=== PATIENT | female | born 1995 | race Caucasian/White ===

== ENCOUNTER 2019-10-18 02:20 | Emergency (ER) | payer OTHER ==
[2019-10-18 03:15] LABS: BLOOD UREA NITROGEN,BUN 8 mg/dL (7.0-18.0); CARBON DIOXIDE,CO2 22.2 mmol/L (21.0-32.0); CHLORIDE,CL 104 mmol/L (98-107); GLUCOSE RANDOM 145 mg/dL (74-106); SODIUM,NA 138 mmol/L (136-145)
--- NOTE | 2019-10-18 04:27 | EDM.PDOC ---
ED HPI GENERAL MEDICAL PROBLEM - General Chief Complaint: Cardiovascular Problem Stated Complaint: HEART PALPITATION Time Seen by Provider: 10/18/19 02:32 - History of Present Illness INITIAL COMMENTS - FREE TEXT/NARRATIVE: HPI 24-year-old female at ~25 weeks gestation presents for evaluation of recurrent palpitations that she noticed at 1 AM when she woke from her sleep, patient wants to just make sure that I am okay and my baby is okay. Patient notes a history of recurrent episodes of palpitations similar to todays event for which she is not sought care. These have generally been responsive to Ativan (which the patient took tonight as well). Notes a history of PSVT as well. No fevers, chills, chest pain, shortness breath, no history of DVT or PE. No calf tenderness, swelling, hemoptysis. M/S/F/SocHx notable for: please see HPI; remainder reviewed with patient and in chart. ROS: Negative constitutional, eye, cardiovascular, pulmonary, GI, , MSK, skin , neurologic, psychiatric, endocrine unless noted in the HPI. Exam HR 114, RR 18, BP one 4488, T 35.8C, SaO2 100% on room air. Gen: Pleasant, non-toxic appearing, resting comfortably. HEENT: NC, AT, PEERL, EOMI. Resp: Clear to auscultation bilaterally, normal work of breathing, no accessory muscle usage. Card: Regular rate and rhythm with no murmurs, rubs, or gallops, extremities warm and well perfused. GI: Non-tender to palpation throughout all quadrants, no focal tenderness at McBurney's point, negative Vital's sign, non-distended, no rebound or guarding. : No suprapubic tenderness to palpation. MSK: No visible deformities, strength and tone without visually appreciable deficit. Skin: Normal color with no visible lesions. Neuro: alert and oriented 3, no facial asymmetry, vision and hearing WNL. Psych: Mood and affect appropriate. Focused Ultrasound Indication: evaluation . Exam type (limited): Transabdominal, initial Views obtained: Transabdominal sagittal and transabdominal transverse. Findings: intrauterine with FHR of ~140. Labs / Imaging: EKG: SR 107 bpm, no IA segment depressions, IA interval hundred 40 ms, QRS 86 ms , no ST segment elevations or depressions, QTc 434 ms, no discordant T wave inversions. WBC 13.7, HB 11.4, d-dimer 0.48, sodium 138, potassium 4.0, troponin 0.55 MDM Previous chart, nursing note, labs, imaging, and vitals reviewed. A: 24-year-old female at ~25 weeks gestation presents for evaluation of recurrent palpitations that she noticed at 1 AM when she woke from her sleep , patient wants to just make sure that I am okay and my baby is okay. DDx: gastritis, GERD, pericarditis, myocarditis, PE, ACS, anxiety, arrhythmia. Evaluation: patient asymptomatic, ECG without evidence of conduction abnormalities or ischemia, however there is mild leukocytosis (unclear if 2/2 or secondary to infectious/inflammatory process), troponin is elevated in the patients d-dimer is negative. PE is felt to be low probability based upon clinical Gestalt and the negative d-dimer. Troponin elevation is of unclear etiology, this may be secondary to a pericarditis, myocarditis, right heart strain (e.g. PE), or conceivably demand mediated due to a spontaneously resolved paroxysmal arrhythmia that could have conceivably woken the patient from her sleep. As the patient is asymptomatic and hemodynamically stable throughout her ED course in [place] further evaluation and interventions deferred to the accepting physician, Dr. Liao in [place]. Patient transferred by ALS. Impression: palpitations, elevated troponin. (please reference below for remainder of encounter information) Critical Care Time Organ system(s): Cardiovascular Intervention: Assessment of the patient, interpretation of studies, communication related to patient care. Time: 30 minutes were spent directly related to patient care exclusive of separately billed procedures. chest Pain Score (Numeric/FACES): 5 - Related Data Allergies Allergy/AdvReac Type Severity Reaction Status Date / Time No Known Allergies Allergy Verified 10/18/19 02:31 Home Meds: Home Meds LORazepam 0.5 mg PO Q4H PRN 07/15/18 [History] Pnv No.95/Ferrous Fum/Folic AC [ Tablet] 1 tab PO DAILY 07/15/18 [ History] Iron 1 tab PO DAILY 07/31/18 [History] metFORMIN [Glucophage XR] 500 mg PO BID 10/18/19 [History] Past Medical History - Past Health History Medical/Surgical History: Denies Medical/Surgical History HEENT History: Reports: None Cardiovascular History: Reports: Arrhythmia, Other (See Below) Other Cardiovascular History: PSVT 2015 [employer] History: Reports: Psychiatric History: Reports: Anxiety, Depression Endocrine/Metabolic History: Reports: Diabetes, Gestational - Past Surgical History HEENT Surgical History: Reports: Oral Surgery, Tonsillectomy Cardiovascular Surgical History: Reports: None Endocrine Surgical History: Reports: None Social & Family History - Family History Family Medical History: Noncontributory - Tobacco Use Smoking Status *Q: Never Smoker - Recreational Drug Use Recreational Drug Use: No - Living Situation & Occupation Living situation: Reports: with Significant Other Occupation: Employed ED ROS GENERAL - Review of Systems Review Of Systems: See Below ED EXAM, GENERAL - Physical Exam Exam: See Below Course - Vital Signs Last Recorded V/S: Last Vital Signs Temp 36.2 C 10/18/19 04:11 Pulse 106 H 10/18/19 04:11 Resp 16 10/18/19 04:11 BP 142/95 H 10/18/19 04:11 Pulse Ox 98 10/18/19 04:11 - Orders/Labs/Meds Orders: Active Orders 24 hr Category Date Time Status EKG Documentation Completion [RC] STAT Care 10/18/19 02:45 Active Labs: Laboratory Tests 10/18/19 10/18/19 10/18/19 Range/Units 02:50 02:50 02:50 WBC 13.69 H (4.0-11.0) K/uL RBC 3.75 L (4.30-5.90) M/uL Hgb 11.4 L (12.0-16.0) g/dL Hct 34.4 L (36.0-46.0) % MCV 91.7 (80.0-98.0) fL MCH 30.4 (27.0-32.0) pg MCHC 33.1 (31.0-37.0) g/dL RDW Std Deviation 46.0 (28.0-62.0) fl RDW Coeff of Charley 14 (11.0-15.0) % Plt Count 193 (150-400) K/uL MPV 9.40 (7.40-12.00) fL Neut % (Auto) 84.7 H (48.0-80.0) % Lymph % (Auto) 10.7 L (16.0-40.0) % Ector % (Auto) 4.2 (0.0-15.0) % Eos % (Auto) 0.3 (0.0-7.0) % Baso % (Auto) 0.1 (0.0-1.5) % Neut # (Auto) 11.6 H (1.4-5.7) K/uL Lymph # (Auto) 1.5 (0.6-2.4) K/uL Ector # (Auto) 0.6 (0.0-0.8) K/uL Eos # (Auto) 0.0 (0.0-0.7) K/uL Baso # (Auto) 0.0 (0.0-0.1) K/uL Nucleated RBC % 0.0 /100WBC Nucleated RBCs # 0 K/uL D-Dimer, Quantitative 0.48 (0.0-0.50) mg/L FEU Sodium 138 (136-145) mmol/L Potassium 4.0 (3.5-5.1) mmol/L Chloride 104 (98-107) mmol/L Carbon Dioxide 22.2 (21.0-32.0) mmol/L BUN 8 (7.0-18.0) mg/dL Creatinine 0.7 (0.6-1.0) mg/dL Est Cr Clr Drug Dosing 115.01 mL/min Estimated GFR (MDRD) > 60.0 ml/min Glucose 145 H (74-106) mg/dL Calcium 8.6 (8.5-10.1) mg/dL Troponin I 0.548 H* (0.000-0.056) ng/mL Departure - Departure Time of Disposition: 04:27 Disposition: DC/Tfer to Other 70 Reason for Transfer *Q: Other (see note) Clinical Impression: Palpitations Referrals: PCP,None [Primary Care Provider] - Sepsis Event Note - Evaluation Sepsis Screening Result: No Definite Risk - Focused Exam Vital Signs: Vital Signs Temp Pulse Resp BP Pulse Ox 10/18/19 04:11 36.2 C 106 H 16 142/95 H 98 10/18/19 03:50 107 H 16 121/87 98 10/18/19 02:20 35.8 C 114 H 18 144/88 H 100 Date Exam was Performed: 10/18/19 Time Exam was Performed: 04:26 - My Orders Last 24 Hours: My Active Orders 10/18/19 02:45 EKG Documentation Completion [RC] STAT - Assessment/Plan Last 24 Hours: My Active Orders 10/18/19 02:45 EKG Documentation Completion [RC] STAT
== END 2019-10-18 04:47 | disposition other institution (70) ==
LOC: MW.ED 02:20
DX: O99.89 Other specified diseases and conditions complicating pregnancy, childbirth and the puerperium (principal); R00.2 Palpitations; R79.89 Other specified abnormal findings of blood chemistry; O99.342 Other mental disorders complicating pregnancy, second trimester; F41.9 Anxiety disorder, unspecified; Z79.899 Other long term (current) drug therapy; Z3A.25 25 weeks gestation of pregnancy
CPT/HCPCS: 36415; 80048; 84484; 85025; 85379; 93005; 99285-25; 99291

== ENCOUNTER 2020-01-16 00:13 | Inpatient (IN) | payer OTHER ==
[2020-01-16] MEDS ORDERED: Misoprostol 25 MCG (1/4 of 100 MCG) Tab VAG PRN ×2 (00:49)
[2020-01-16] MEDS ORDERED: Sodium Chloride 0.9% 10 ML SDV IV PRN (00:49)
[2020-01-16] MEDS ORDERED: Nalbuphine 10 MG/1 ML Vial IVPUSH PRN (00:49)
[2020-01-16] MEDS ORDERED: Methylergonovine 0.2 MG/1 ML Amp IM PRN (00:49)
[2020-01-16] MEDS ORDERED: Tranexamic Acid 1,000 MG in Sodium Chloride 0.9% 100 ML IV PRN (00:49)
[2020-01-16] MEDS ORDERED: Misoprostol 200 MCG Tab PO PRN (00:49)
[2020-01-16] MEDS ORDERED: Carboprost Tromethamine 250 MCG/1 ML Amp IM PRN (00:49)
[2020-01-16] MEDS ORDERED: Sodium Chloride 0.9% 10 ML Syringe FLUSH PRN (00:49)
[2020-01-16] MEDS ORDERED: Ondansetron 4 MG/2 ML SDV IVPUSH PRN (00:49)
[2020-01-16] MEDS ORDERED: Sodium Chloride 0.9% 2.5 ML Syringe FLUSH PRN (00:49)
[2020-01-16] MEDS ORDERED: Lidocaine 1% 50 ML MDV INJECT PRN (00:49)
[2020-01-16] MEDS ORDERED: Terbutaline 1 MG/ML SDV SUBCUT PRN (00:49)
[2020-01-16] MEDS ORDERED: Misoprostol 25 MCG (1/4 of 100 MCG) Tab PO PRN ×2 (00:49)
[2020-01-16] MEDS ORDERED: Water For Irrigation,Sterile 1,000 ML Container IRR PRN (00:49)
[2020-01-16] MEDS ORDERED: Oxytocin/0.9 % Sodium Chloride 30 UNIT/500 ML BAG IV SCH ×2 (01:00)
--- NOTE | 2020-01-16 09:15 | PCM.LDHP ---
L&D History of Present Illness - General Date of Service: 01/16/20 Admit Problem/Dx: Patient Status Order with Admit Dx/Problem 01/16/20 00:49 Patient Status [ADT] Routine Admission Diagnosis/Problem Admission Diagnosis/Problem Source of Information: Patient History Limitations: Reports: No Limitations - History of Present Illness Improves with: Reports: None Worsens with: Reports: None Associated Symptoms: Reports: N - Related Data Allergies/Adverse Reactions: Allergies Allergy/AdvReac Type Severity Reaction Status Date / Time No Known Allergies Allergy Verified 01/16/20 00:48 Home Medications: Home Meds LORazepam 0.5 mg PO Q4H PRN 07/15/18 [History] Pnv No.95/Ferrous Fum/Folic AC [ Tablet] 1 tab PO DAILY 07/15/18 [ History] Iron 1 tab PO DAILY 07/31/18 [History] metFORMIN [Glucophage XR] 500 mg PO BID 10/18/19 [History] Past Medical History - Past Health History Medical/Surgical History: Denies Medical/Surgical History HEENT History: Reports: None Cardiovascular History: Reports: Arrhythmia, Other (See Below) Other Cardiovascular History: PSVT [address] [employer] History: Reports: Psychiatric History: Reports: Anxiety, Depression Endocrine/Metabolic History: Reports: Diabetes, Gestational - Past Surgical History HEENT Surgical History: Reports: Oral Surgery, Tonsillectomy Cardiovascular Surgical History: Reports: None Endocrine Surgical History: Reports: None Social & Family History - Family History Family Medical History: Noncontributory - Tobacco Use Smoking Status *Q: Never Smoker Second Hand Smoke Exposure: No - Caffeine Use Caffeine Use: Reports: None - Recreational Drug Use Recreational Drug Use: No - Living Situation & Occupation Living situation: Reports: with Significant Other Occupation: Employed H&P Review of Systems - Review of Systems: Review Of Systems: See Below General: Reports: No Symptoms HEENT: Reports: No Symptoms Pulmonary: Reports: No Symptoms Cardiovascular: Reports: No Symptoms Gastrointestinal: Reports: No Symptoms Genitourinary: Reports: No Symptoms Musculoskeletal: Reports: No Symptoms Skin: Reports: No Symptoms Psychiatric: Reports: No Symptoms Neurological: Reports: No Symptoms Hematologic/Lymphatic: Reports: No Symptoms Immunologic: Reports: No Symptoms L&D Exam - Exam Exam: See Below - Vital Signs Weight: 125.191 kg - OB Specific Fundal Height In cm: 40 Contraction Intensity: Mild to Moderate Movement: Active Heart Tones: Present Presentation: Vertex - Patterson Score Patterson Score Cervix Position: Midposition Patterson Score Consistency: Soft Patterson Score Effacement: 51-70% Patterson Score Dilation: 1-2 cm Patterson Score Infant's Station: -2 Patterson Score Total: 7 - Exam General: Alert, Oriented HEENT: PERRLA, Conjunctiva Clear, EACs Clear, EOMI, Hearing Intact, Mucosa Moist & [place], Nares Patent, Normal Nasal Septum, Posterior Pharynx Clear, TMs Clear Neck: Supple, Trachea Midline Lungs: Clear to Auscultation, Normal Respiratory Effort Cardiovascular: Regular Rate, Regular Rhythm GI/Abdominal Exam: Normal Bowel Sounds, Soft, Non-Tender, No Organomegaly, No Distention, No Abnormal Bruit, No Mass, Pelvis Stable Rectal Exam: Normal Exam, Normal Rectal Tone Genitourinary: Normal external exam, Normal bimanual exam, Normal speculum exam Back Exam: Normal Inspection, Full Range of Motion Extremities: Normal Inspection, Normal Range of Motion, Non-Tender, No Pedal Edema, Normal Capillary Refill Skin: Warm, Dry, Intact Neurological: Cranial Nerves Intact, Reflexes Equal Bilateral Psychiatric: Alert, Normal Affect, Normal Mood - Patient Data Lab Results Last 24 hrs: Laboratory Results - last 24 hr 01/16/20 01/16/20 Range/Units 01:58 01:58 WBC 10.62 (4.0-11.0) K/uL RBC 3.98 L (4.30-5.90) M/uL Hgb 12.1 (12.0-16.0) g/dL Hct 36.9 (36.0-46.0) % MCV 92.7 (80.0-98.0) fL MCH 30.4 (27.0-32.0) pg MCHC 32.8 (31.0-37.0) g/dL RDW Std Deviation 46.1 (28.0-62.0) fl RDW Coeff of Charley 14 (11.0-15.0) % Plt Count 178 (150-400) K/uL MPV 9.70 (7.40-12.00) fL Nucleated RBC % 0.0 /100WBC Nucleated RBCs # 0 K/uL Blood Type O POSITIVE Antibody Screen NEGATIVE Result Diagrams: 01/16/20 01:58 Problem List Initiated/Reviewed/Updated: Yes Orders Last 24hrs: Active Orders 24 hr Category Date Time Status Patient Status [ADT] Routine ADT 01/16/20 00:49 Active Bedrest Bathroom Privileges [RC] ASDIRECTED Care 01/16/20 00:49 Active Communication Order [RC] ASDIRECTED Care 01/16/20 00:49 Active Communication Order [RC] ASDIRECTED Care 01/16/20 00:49 Active Communication Order [RC] ASDIRECTED Care 01/16/20 00:49 Active Heart Tones [RC] CONTINUOUS Care 01/16/20 00:49 Active Non Stress Test [RC] PER UNIT ROUTINE Care 01/16/20 00:49 Active May Shower [RC] ASDIRECTED Care 01/16/20 00:49 Active Notify Provider [RC] PRN Care 01/16/20 00:49 Active Notify Provider [RC] PRN Care 01/16/20 00:49 Active Notify Provider [RC] PRN Care 01/16/20 00:49 Active Notify Provider [RC] STAT Care 01/16/20 00:49 Active Oxygen Therapy [RC] ASDIRECTED Care 01/16/20 00:49 Active Up ad Denisha [RC] ASDIRECTED Care 01/16/20 00:49 Active Vaginal Exam [RC] PRN Care 01/16/20 00:49 Active Vital Signs [RC] PER UNIT ROUTINE Care 01/16/20 00:49 Active Regular Diet [DIET] Diet 01/16/20 Breakfast Active RPR (SYPHILIS SERO) W/ RFLX [REF] Routine Lab 01/16/20 01:58 Received Carboprost Tromethamine [Hemabate DS] Med 01/16/20 00:49 Active 250 mcg IM ASDIRECTED PRN Lactated Ringers [Ringers, Lactated] 1,000 ml Med 01/16/20 01:00 Active IV ASDIRECTED Lidocaine 1% [Xylocaine 1%] Med 01/16/20 00:49 Active 50 ml INJECT ONETIME PRN Methylergonovine [Methergine] Med 01/16/20 00:49 Active 0.2 mg IM ASDIRECTED PRN Nalbuphine [Nubain] Med 01/16/20 00:49 Active 10 mg IVPUSH Q1H PRN Ondansetron [Zofran] Med 01/16/20 00:49 Active 4 mg IVPUSH Q4H PRN Oxytocin/0.9 % Sodium Chloride [Oxytocin 30 Unit/500 ML Med 01/16/20 01:00 Active -NS] 30 unit in 500 ml IV TITRATE Oxytocin/0.9 % Sodium Chloride [Oxytocin 30 Unit/500 ML Med 01/16/20 01:00 Active -NS] 30 unit in 500 ml IV TITRATE Sodium Chloride 0.9% [Normal Saline] Med 01/16/20 00:49 Active 10 ml IV ASDIRECTED PRN Sodium Chloride 0.9% [Saline Flush] Med 01/16/20 00:49 Active 10 ml FLUSH ASDIRECTED PRN Sodium Chloride 0.9% [Saline Flush] Med 01/16/20 00:49 Active 2.5 ml FLUSH ASDIRECTED PRN Terbutaline [Brethine] Med 01/16/20 00:49 Active 0.25 mg SUBCUT ASDIRECTED PRN Tranexamic Acid [Cyklokapron] 1,000 mg Med 01/16/20 00:49 Active Sodium Chloride 0.9% [Normal Saline] 100 ml IV ONETIME Water For Irrigation,Sterile [Sterile Water for Med 01/16/20 00:49 Active Irrigation] 1,000 ml IRR ASDIRECTED PRN miSOPROStoL [Cytotec] Med 01/16/20 00:49 Active 200 mcg PO ONETIME PRN miSOPROStoL [Cytotec] Med 01/16/20 00:49 Active 25 mcg PO ONETIME PRN miSOPROStoL [Cytotec] Med 01/16/20 00:49 Active 25 mcg PO Q4H PRN miSOPROStoL [Cytotec] Med 01/16/20 00:49 Active 25 mcg VAG ONETIME PRN miSOPROStoL [Cytotec] Med 01/16/20 00:49 Active 25 mcg VAG Q4H PRN Scalp Electrode [WOMSER] Per Unit Routine Oth 01/16/20 00:49 Ordered Medication Administration Instruction [OM.PC] Q3H Oth 01/16/20 01:00 Ordered Peripheral IV Insertion Adult [OM.PC] Routine Oth 01/16/20 00:49 Ordered Resuscitation Status Routine Resus Stat 01/16/20 00:49 Ordered Medication Orders Carboprost Tromethamine (Hemabate Ds) 250 mcg IM ASDIRECTED PRN PRN Reason: Post Hemorrhage Lactated Ringer's (Ringers, Lactated) 1,000 mls @ 150 mls/hr IV ASDIRECTED EDILSON Oxytocin/Sodium Chloride (Oxytocin 30 Unit/500 Ml-Ns) 30 unit in 500 mls @ 555 mls/hr IV TITRATE EDILSON Oxytocin/Sodium Chloride (Oxytocin 30 Unit/500 Ml-Ns) 30 unit in 500 mls @ 2 mls/hr IV TITRATE EDILSON; Protocol Tranexamic Acid 1,000 mg/ (Sodium Chloride) 110 mls @ 660 mls/hr IV ONETIME PRN PRN Reason: Bleeding Lidocaine HCl (Xylocaine 1%) 50 ml INJECT ONETIME PRN PRN Reason: Laceration repair Methylergonovine Maleate (Methergine) 0.2 mg IM ASDIRECTED PRN PRN Reason: Post Hemorrhage Misoprostol (Cytotec) 200 mcg PO ONETIME PRN PRN Reason: Post Hemorrhage Misoprostol (Cytotec) 25 mcg VAG ONETIME PRN PRN Reason: Cervical Ripening Last Admin: 01/16/20 02:11 Dose: 25 mcg Misoprostol (Cytotec) 25 mcg VAG Q4H PRN PRN Reason: Cervical Ripening Misoprostol (Cytotec) 25 mcg PO ONETIME PRN PRN Reason: Cervical Ripening Last Admin: 01/16/20 02:11 Dose: 25 mcg Misoprostol (Cytotec) 25 mcg PO Q4H PRN PRN Reason: Cervical Ripening Nalbuphine HCl (Nubain) 10 mg IVPUSH Q1H PRN PRN Reason: Pain (severe 7-10) Ondansetron HCl (Zofran) 4 mg IVPUSH Q4H PRN PRN Reason: Nausea/Vomiting Sodium Chloride (Saline Flush) 10 ml FLUSH ASDIRECTED PRN PRN Reason: Keep Vein Open Sodium Chloride (Saline Flush) 2.5 ml FLUSH ASDIRECTED PRN PRN Reason: Keep Vein Open Sodium Chloride (Normal Saline) 10 ml IV ASDIRECTED PRN PRN Reason: IV Use Sterile Water (Sterile Water For Irrigation) 1,000 ml IRR ASDIRECTED PRN PRN Reason: delivery Terbutaline Sulfate (Brethine) 0.25 mg SUBCUT ASDIRECTED PRN PRN Reason: Tacysystole Assessment/Plan Comment:: Uterine 38+ weeks prior 1001 the patient have gestational diabetes she is admitted for elective induction with Cytotec and Pitocin
[2020-01-16] MEDS: Lactated Ringers 1,000 ML IV SCH ×3 (11:25→13:18)
--- NOTE | 2020-01-16 11:42 | PCM.PREANE ---
Preanesthetic Assessment - Anesthesia/Transfusion/Family Hx Anesthesia History: Prior Anesthesia Without Reaction Family History of Anesthesia Reaction: No Transfusion History: No Prior Transfusion(s) Intubation History: Unknown - Review of Systems General: No Symptoms Pulmonary: No Symptoms Cardiovascular: No Symptoms, Other (History of SVT states she takes Lorazapam if needed. No recent events.) Gastrointestinal: No Symptoms Neurological: No Symptoms Other: Reports: None - Physical Assessment NPO Status Date: 01/16/20 NPO Status Time: 10:30 Vital Signs: 120/78 78 98% Height: 5 ft 6 in Weight: 125.191 kg ASA Class: 3 Mental Status: Alert & Oriented x3 Dentition: Reports: Normal Dentition Thyro-Mental Finger Breadths: 3 Mouth Opening Finger Breadths: 3 ROM/Head Extension: Full Lungs: Clear to Auscultation, Normal Respiratory Effort Cardiovascular: Regular Rate, Regular Rhythm - Lab Values: Laboratory Last Values WBC 10.62 K/uL (4.0-11.0) 01/16/20 01:58 RBC 3.98 M/uL (4.30-5.90) L 01/16/20 01:58 Hgb 12.1 g/dL (12.0-16.0) 01/16/20 01:58 Hct 36.9 % (36.0-46.0) 01/16/20 01:58 MCV 92.7 fL (80.0-98.0) 01/16/20 01:58 MCH 30.4 pg (27.0-32.0) 01/16/20 01:58 MCHC 32.8 g/dL (31.0-37.0) 01/16/20 01:58 RDW Std Deviation 46.1 fl (28.0-62.0) 01/16/20 01:58 RDW Coeff of Charley 14 % (11.0-15.0) 01/16/20 01:58 Plt Count 178 K/uL (150-400) 01/16/20 01:58 MPV 9.70 fL (7.40-12.00) 01/16/20 01:58 Nucleated RBC % 0.0 /100WBC 01/16/20 01:58 Nucleated RBCs # 0 K/uL 01/16/20 01:58 Blood Type O POSITIVE 01/16/20 01:58 Antibody Screen NEGATIVE 01/16/20 01:58 - Allergies Allergies/Adverse Reactions: Allergies Allergy/AdvReac Type Severity Reaction Status Date / Time No Known Allergies Allergy Verified 01/16/20 00:48 - Blood Blood Available: Yes - Anesthesia Plan Pre-Op Medication Ordered: None - Acknowledgements Anesthesia Type Planned: Epidural Pt an Appropriate Candidate for the Planned Anesthesia: Yes Alternatives and Risks of Anesthesia Discussed w Pt/Guardian: Yes Pt/Guardian Understands and Agrees with Anesthesia Plan: Yes Additional Comments: Discussed plan with pt and wants to proceed. PreAnesthesia Questionnaire - Past Health History Medical/Surgical History: Denies Medical/Surgical History HEENT History: Reports: None Cardiovascular History: Reports: Arrhythmia, Other (See Below) Other Cardiovascular History: PSVT 2016 [employer] History: Reports: Psychiatric History: Reports: Anxiety, Depression Endocrine/Metabolic History: Reports: Diabetes, Gestational - Past Surgical History HEENT Surgical History: Reports: Oral Surgery, Tonsillectomy Cardiovascular Surgical History: Reports: None Endocrine Surgical History: Reports: None - SUBSTANCE USE Smoking Status *Q: Never Smoker Second Hand Smoke Exposure: No Recreational Drug Use History: No - HOME MEDS Home Medications: Home Meds LORazepam 0.5 mg PO Q4H PRN 07/15/18 [History] Pnv No.95/Ferrous Fum/Folic AC [ Tablet] 1 tab PO DAILY 07/15/18 [ History] Iron 1 tab PO DAILY 07/31/18 [History] metFORMIN [Glucophage XR] 500 mg PO BID 10/18/19 [History] - CURRENT (IN HOUSE) MEDS Current Meds: Current Medications Carboprost Tromethamine (Hemabate Ds) 250 mcg IM ASDIRECTED PRN PRN Reason: Post Hemorrhage Lactated Ringer's (Ringers, Lactated) 1,000 mls @ 150 mls/hr IV ASDIRECTED EDILSON Oxytocin/Sodium Chloride (Oxytocin 30 Unit/500 Ml-Ns) 30 unit in 500 mls @ 555 mls/hr IV TITRATE EDILSON Oxytocin/Sodium Chloride (Oxytocin 30 Unit/500 Ml-Ns) 30 unit in 500 mls @ 2 mls/hr IV TITRATE EDILSON; Protocol Tranexamic Acid 1,000 mg/ (Sodium Chloride) 110 mls @ 660 mls/hr IV ONETIME PRN PRN Reason: Bleeding Lidocaine HCl (Xylocaine 1%) 50 ml INJECT ONETIME PRN PRN Reason: Laceration repair Methylergonovine Maleate (Methergine) 0.2 mg IM ASDIRECTED PRN PRN Reason: Post Hemorrhage Misoprostol (Cytotec) 200 mcg PO ONETIME PRN PRN Reason: Post Hemorrhage Misoprostol (Cytotec) 25 mcg VAG ONETIME PRN PRN Reason: Cervical Ripening Last Admin: 01/16/20 02:11 Dose: 25 mcg Misoprostol (Cytotec) 25 mcg VAG Q4H PRN PRN Reason: Cervical Ripening Misoprostol (Cytotec) 25 mcg PO ONETIME PRN PRN Reason: Cervical Ripening Last Admin: 01/16/20 02:11 Dose: 25 mcg Misoprostol (Cytotec) 25 mcg PO Q4H PRN PRN Reason: Cervical Ripening Nalbuphine HCl (Nubain) 10 mg IVPUSH Q1H PRN PRN Reason: Pain (severe 7-10) Ondansetron HCl (Zofran) 4 mg IVPUSH Q4H PRN PRN Reason: Nausea/Vomiting Sodium Chloride (Saline Flush) 10 ml FLUSH ASDIRECTED PRN PRN Reason: Keep Vein Open Sodium Chloride (Saline Flush) 2.5 ml FLUSH ASDIRECTED PRN PRN Reason: Keep Vein Open Sodium Chloride (Normal Saline) 10 ml IV ASDIRECTED PRN PRN Reason: IV Use Sterile Water (Sterile Water For Irrigation) 1,000 ml IRR ASDIRECTED PRN PRN Reason: delivery Terbutaline Sulfate (Brethine) 0.25 mg SUBCUT ASDIRECTED PRN PRN Reason: Tacysystole
[2020-01-16] MEDS ORDERED: Bupivicaine/fentaNYL/NS 250 ML ONE (11:46)
[2020-01-16] MEDS ORDERED: ePHEDrine 50 MG/ML SDV ONE (12:38)
[2020-01-16] MEDS ORDERED: Bisacodyl 10 MG Supp RECTAL PRN (22:24)
[2020-01-16] MEDS ORDERED: oxyCODONE 5 MG Tab PO PRN (22:24)
[2020-01-16] MEDS ORDERED: Benzocaine/Menthol 20%-0.5% Spray 78 GM Cannister TOP PRN (22:24)
[2020-01-16] MEDS ORDERED: Ibuprofen 400 MG Tab PO PRN (22:24)
[2020-01-16] MEDS ORDERED: Acetaminophen 500 MG Tab PO PRN (22:24)
[2020-01-16] MEDS ORDERED: Docusate Sodium 100 MG Cap PO PRN (22:24)
[2020-01-16] MEDS ORDERED: Lanolin 100% Cream 7 GM Tube TOP PRN (22:24)
[2020-01-16] MEDS ORDERED: Witch Hazel Medicated Pads 40/Jar TOP PRN (22:24)
--- NOTE | 2020-01-16 22:57 | OR ---
SURGEON: Miguel Cintron MD DATE OF PROCEDURE: Ms. Stringer is 24 years old. She is para 1-0-0-1. She is 38+ weeks . She had gestational diabetes in this . Her GBS status was negative. Otherwise, her care was unremarkable. She is admitted for elective induction because of her diabetes. She was induced with Cytotec and Pitocin. She responded to that very well. She had epidural anesthesia for labor analgesia. The patient was able to accomplish normal spontaneous vaginal delivery, female fetus, scores reported to be 8 and 9. The weight is not available. The placenta had to be removed manually because it did not express spontaneously without any problem. Estimated blood loss was 250 to 300 mL. Heart rate was category 1 through the entire process of labor. There was 1 nuchal cord noticed at the time of the delivery. There was no complication in the labor process and in the delivery process. ANDREA / JAN /[id number]
[2020-01-17] MEDS: Ibuprofen 800 MG Tab PO PRN ×2 (05:23→15:03)
--- NOTE | 2020-01-17 08:28 | PCM.PNPP ---
- General Info Date of Service: 01/17/20 Admission Dx/Problem (Free Text): Patient Status Order with Admit Dx/Problem 01/16/20 00:49 Patient Status [ADT] Routine Admission Diagnosis/Problem Admission Diagnosis/Problem Functional Status: Reports: Pain Controlled - Review of Systems General: Reports: No Symptoms HEENT: Reports: No Symptoms Pulmonary: Reports: No Symptoms Cardiovascular: Reports: No Symptoms Gastrointestinal: Reports: No Symptoms Genitourinary: Reports: No Symptoms Musculoskeletal: Reports: No Symptoms Skin: Reports: Diaphoresis (Intermittent diaphoresis with flushing. Otherwise warm, dry, appropriate for ethnicity.) Neurological: Reports: No Symptoms Psychiatric: Reports: No Symptoms - General Info Date of Service: 01/17/20 - Patient Data Vital Signs - Most Recent: Last Vital Signs Temp 97.6 F 01/17/20 04:31 Pulse 90 01/17/20 04:31 Resp 15 01/17/20 04:31 BP 121/81 01/17/20 04:31 Pulse Ox 97 01/17/20 04:31 Weight - Most Recent: 276 lb Lab Results - Last 24 Hours: Laboratory Results - last 24 hr 01/17/20 Range/Units 06:30 Hgb 11.3 L (12.0-16.0) g/dL Hct 35.2 L (36.0-46.0) % Med Orders - Current: Current Medications Acetaminophen (Tylenol Extra Strength) 500 mg PO Q4H PRN PRN Reason: Pain Acetaminophen (Tylenol Extra Strength) 1,000 mg PO Q4H PRN PRN Reason: Pain Benzocaine/Menthol (Dermoplast Pain Relief 20%-0.5% [place]) 78 gm TOP ASDIRECTED PRN PRN Reason: Perineal Comfort Measure Bisacodyl (Dulcolax) 10 mg RECTAL ONETIME PRN PRN Reason: Constipation Carboprost Tromethamine (Hemabate Ds) 250 mcg IM ASDIRECTED PRN PRN Reason: Post Hemorrhage Docusate Sodium (Colace) 100 mg PO BID PRN PRN Reason: Constipation Emollient Ointment (Lansinoh Hpa) 0 gm TOP ASDIRECTED PRN PRN Reason: Sore Nipples Lactated Ringer's (Ringers, Lactated) 1,000 mls @ 150 mls/hr IV ASDIRECTED EDILSON Last Admin: 01/16/20 13:18 Dose: 500 mls/hr Oxytocin/Sodium Chloride (Oxytocin 30 Unit/500 Ml-Ns) 30 unit in 500 mls @ 555 mls/hr IV TITRATE EDILSON Oxytocin/Sodium Chloride (Oxytocin 30 Unit/500 Ml-Ns) 30 unit in 500 mls @ 2 mls/hr IV TITRATE EDILSON; Protocol Last Titration: 01/16/20 19:32 Dose: 6 munits/min, 6 mls/hr Tranexamic Acid 1,000 mg/ (Sodium Chloride) 110 mls @ 660 mls/hr IV ONETIME PRN PRN Reason: Bleeding Ibuprofen (Motrin) 400 mg PO Q4H PRN PRN Reason: Pain Ibuprofen (Motrin) 800 mg PO Q6H PRN PRN Reason: Pain Last Admin: 01/17/20 05:23 Dose: 800 mg Lidocaine HCl (Xylocaine 1%) 50 ml INJECT ONETIME PRN PRN Reason: Laceration repair Methylergonovine Maleate (Methergine) 0.2 mg IM ASDIRECTED PRN PRN Reason: Post Hemorrhage Misoprostol (Cytotec) 200 mcg PO ONETIME PRN PRN Reason: Post Hemorrhage Misoprostol (Cytotec) 25 mcg VAG ONETIME PRN PRN Reason: Cervical Ripening Last Admin: 01/16/20 02:11 Dose: 25 mcg Misoprostol (Cytotec) 25 mcg VAG Q4H PRN PRN Reason: Cervical Ripening Last Admin: 01/16/20 13:13 Dose: 25 mcg Misoprostol (Cytotec) 25 mcg PO ONETIME PRN PRN Reason: Cervical Ripening Last Admin: 01/16/20 02:11 Dose: 25 mcg Misoprostol (Cytotec) 25 mcg PO Q4H PRN PRN Reason: Cervical Ripening Last Admin: 01/16/20 13:13 Dose: 25 mcg Nalbuphine HCl (Nubain) 10 mg IVPUSH Q1H PRN PRN Reason: Pain (severe 7-10) Ondansetron HCl (Zofran) 4 mg IVPUSH Q4H PRN PRN Reason: Nausea/Vomiting Oxycodone HCl (Oxycodone) 5 mg PO Q2H PRN PRN Reason: Pain Sodium Chloride (Saline Flush) 10 ml FLUSH ASDIRECTED PRN PRN Reason: Keep Vein Open Sodium Chloride (Saline Flush) 2.5 ml FLUSH ASDIRECTED PRN PRN Reason: Keep Vein Open Sodium Chloride (Normal Saline) 10 ml IV ASDIRECTED PRN PRN Reason: IV Use Sterile Water (Sterile Water For Irrigation) 1,000 ml IRR ASDIRECTED PRN PRN Reason: delivery Terbutaline Sulfate (Brethine) 0.25 mg SUBCUT ASDIRECTED PRN PRN Reason: Tacysystole Witch Fay (Tucks) 1 pad TOP ASDIRECTED PRN PRN Reason: comfort care Discontinued Medications Ephedrine Sulfate (Ephedrine Sulfate) Confirm Administered Dose 50 mg .ROUTE .STK-MED ONE Stop: 01/16/20 12:39 Fentanyl/Bupivacaine HCl (Fentanyl/Bupivacaine/Ns 2 Mcg-0.125% 250 Ml) Confirm Administered Dose 250 mls @ as directed .ROUTE .STK-MED ONE Stop: 01/16/20 11:47 - Infant Interaction Infant Disposition, : in Room with Family Interaction: Not Interacting Feeding: Continues to Breastfeed (No problems with EBFing or latch at this time.), Encouraged to Breastfeed Support Person: - Recovery Exam Fundal Tone: Firm Fundal Level: At Umbilicus Fundal Placement: Midline Lochia Amount: Small Lochia Color: Rubra/Red Perineum Description: Intact, Minimal Bruising/Swelling Episiotomy/Laceration: None Bladder Status: Voiding - Exam General: Alert, Oriented HEENT: Pupils Equal, Mucous Membr. Moist/[place] Neck: Supple Lungs: Clear to Auscultation, Normal Respiratory Effort Cardiovascular: Regular Rate, Regular Rhythm GI/Abdominal Exam: Normal Bowel Sounds, Soft, Non-Tender, No Organomegaly, No Distention Extremities: Normal Inspection, Normal Range of Motion, Non-Tender, No Pedal Edema, Normal Capillary Refill Skin: Warm, Dry, Intact Neurological: No New Focal Deficit Psy/Mental Status: Alert, Normal Affect, Normal Mood - Problem List & Annotations (1) (normal spontaneous vaginal delivery) SNOMED Code(s): 14342978, 449205036 Code(s): O80 - ENCOUNTER FOR FULL-TERM UNCOMPLICATED DELIVERY Status: Acute Priority: High Current Visit: Yes (2) Retained placenta, without hemorrhage SNOMED Code(s): 815061658 Code(s): O73.0 - RETAINED PLACENTA WITHOUT HEMORRHAGE Status: Acute Priority: High Current Visit: Yes (3) Gestational diabetes mellitus (GDM) controlled on oral hypoglycemic drug SNOMED Code(s): 96618743 Code(s): O24.415 - GESTATNL DIABETES IN PREG, CTRL BY ORAL HYPOGLYCEMIC DRUGS Status: Acute Priority: High Current Visit: Yes - Problem List Review Problem List Initiated/Reviewed/Updated: Yes - Assessment Assessment:: Jessee is a 24 yo PPD 0 (delivered 01/16/20 @ 2211) S/P with manual extraction of placenta due to retainment. Pertinent Hx: Metformin-controlled GDM, obesity BMI >40. Jessee reports she is doing well. She is independently eating, drinking, ambulating, and voiding. EBFing without difficulty or problems, discussed EBFing and . Reports moderate vaginal bleeding with no clots. No problems or concerns at this time except intermittent flushing and sweating, afebrile, no other S/Ss. Reports she has not checked her FSBSs yet today but she will throughout the day prior to D/C. Patient expresses a desire to be discharged home at 24 hours, RBAs of early discharge home discussed, patient would still like to be discharged home tonight. Patient resting comfortably in bed. Dr. Cintron notified and will be at bedside this afternoon to discuss D/C. - Plan Plan:: Uterine 38+ weeks prior 1001 the patient have gestational diabetes she is admitted for elective induction with Cytotec and Pitocin
[2020-01-17] MEDS: Acetaminophen 500 MG Tab PO PRN ×2 (11:27→19:53)
--- NOTE | 2020-01-17 19:01 | PCM.DCSUM1 ---
Discharge Summary - Hospital Course Free Text/Narrative:: Jessee is a 24 yo PPD 1 (delivered 01/16/20 @ 2211) S/P with manual extraction of placenta due to retainment. Pertinent Hx: Metformin-controlled GDM, obesity BMI >40. Jessee reports she is doing well. She is independently eating, drinking, ambulating, and voiding. EBFing without difficulty or problems, discussed EBFing and . Reports moderate vaginal bleeding with no clots. No problems or concerns at this time, intermittent sweating decreasing. Patient expresses a desire to be discharged home at 24 hours, RBAs of early discharge home discussed, patient would still like to be discharged home tonight. Patient resting comfortably in bed. D/C to home today after 24 hours. Diagnosis: Stroke: No - Discharge Data Discharge Date: 01/17/20 Discharge Disposition: Home, Self-Care 01 Condition: Good - Referral to Home Health Primary Care Physician: PCP None - Discharge Diagnosis/Problem(s) (1) (normal spontaneous vaginal delivery) SNOMED Code(s): 58184823, 818547845 ICD Code: O80 - ENCOUNTER FOR FULL-TERM UNCOMPLICATED DELIVERY Status: Acute Priority: High Current Visit: Yes (2) Retained placenta, without hemorrhage SNOMED Code(s): 751250159 ICD Code: O73.0 - RETAINED PLACENTA WITHOUT HEMORRHAGE Status: Acute Priority: High Current Visit: Yes (3) Gestational diabetes mellitus (GDM) controlled on oral hypoglycemic drug SNOMED Code(s): 10616701 ICD Code: O24.415 - GESTATNL DIABETES IN PREG, CTRL BY ORAL HYPOGLYCEMIC DRUGS Status: Acute Priority: High Current Visit: Yes - Patient Instructions Diet: Regular Diet as Tolerated, Drink 8-10+ Glasses/Day Activity: As Tolerated, No Lifting Over 20 Pounds, Rest and Relax Today Driving: May Drive Today Showering/Bathing: May Shower Notify Provider of: Fever, Increased Pain, Swelling and Redness, Drainage, Nausea and/or Vomiting - Discharge Plan *PRESCRIPTION DRUG MONITORING PROGRAM REVIEWED*: No *COPY OF PRESCRIPTION DRUG MONITORING REPORT IN PATIENT SIXTO: No Prescriptions/Med Rec: Ibuprofen [Motrin] 800 mg PO Q8H PRN #90 tablet PRN Reason: Pain Home Medications: Home Meds LORazepam 0.5 mg PO Q4H PRN 07/15/18 [History] Pnv No.95/Ferrous Fum/Folic AC [ Tablet] 1 tab PO DAILY 07/15/18 [ History] Iron 1 tab PO DAILY 07/31/18 [History] metFORMIN [Glucophage XR] 500 mg PO BID 10/18/19 [History] Ibuprofen [Motrin] 800 mg PO Q8H PRN #90 tablet 01/17/20 [Rx] Oxygen Therapy Mode: Room Air Referrals: [facility] [Outside] Randa Gray CNM [Mid-] - 02/27/20 1:00 pm - Discharge Summary/Plan Comment DC Time >30 min.: Yes Discharge Summary/Plan Comment: D/C home today. Continue home medications as prescribed. RTO in 6 weeks for visit or sooner if problems arise. - General Info Admission Dx/Problem (Free Text: Patient Status Order with Admit Dx/Problem 01/16/20 00:49 Patient Status [ADT] Routine Admission Diagnosis/Problem Admission Diagnosis/Problem Functional Status: Reports: Pain Controlled - Review of Systems General: Reports: No Symptoms HEENT: Reports: No Symptoms Pulmonary: Reports: No Symptoms Cardiovascular: Reports: No Symptoms Gastrointestinal: Reports: No Symptoms Genitourinary: Reports: No Symptoms Musculoskeletal: Reports: No Symptoms Skin: Reports: No Symptoms Neurological: Reports: No Symptoms Psychiatric: Reports: No Symptoms - Patient Data Vitals - Most Recent: Last Vital Signs Temp 96.4 F L 01/17/20 08:17 Pulse 98 01/17/20 08:17 Resp 18 01/17/20 08:17 BP 120/73 01/17/20 08:17 Pulse Ox 98 01/17/20 08:17 Weight - Most Recent: 276 lb Lab Results - Last 24 hrs: Laboratory Results - last 24 hr 01/17/20 01/17/20 Range/Units 06:30 10:54 Hgb 11.3 L (12.0-16.0) g/dL Hct 35.2 L (36.0-46.0) % POC Glucose 73 (60-110) mg/dL Med Orders - Current: Current Medications Acetaminophen (Tylenol Extra Strength) 500 mg PO Q4H PRN PRN Reason: Pain Acetaminophen (Tylenol Extra Strength) 1,000 mg PO Q4H PRN PRN Reason: Pain Last Admin: 04/04/20 11:27 Dose: 1,000 mg Benzocaine/Menthol (Dermoplast Pain Relief 20%-0.5% [place]) 78 gm TOP ASDIRECTED PRN PRN Reason: Perineal Comfort Measure Last Admin: 01/17/20 15:03 Dose: 1 can Bisacodyl (Dulcolax) 10 mg RECTAL ONETIME PRN PRN Reason: Constipation Carboprost Tromethamine (Hemabate Ds) 250 mcg IM ASDIRECTED PRN PRN Reason: Post Hemorrhage Docusate Sodium (Colace) 100 mg PO BID PRN PRN Reason: Constipation Emollient Ointment (Lansinoh Hpa) 0 gm TOP ASDIRECTED PRN PRN Reason: Sore Nipples Lactated Ringer's (Ringers, Lactated) 1,000 mls @ 150 mls/hr IV ASDIRECTED EDILSON Last Admin: 01/16/20 13:18 Dose: 500 mls/hr Oxytocin/Sodium Chloride (Oxytocin 30 Unit/500 Ml-Ns) 30 unit in 500 mls @ 555 mls/hr IV TITRATE EDILSON Oxytocin/Sodium Chloride (Oxytocin 30 Unit/500 Ml-Ns) 30 unit in 500 mls @ 2 mls/hr IV TITRATE EDILSON; Protocol Last Titration: 01/16/20 19:32 Dose: 6 munits/min, 6 mls/hr Tranexamic Acid 1,000 mg/ (Sodium Chloride) 110 mls @ 660 mls/hr IV ONETIME PRN PRN Reason: Bleeding Ibuprofen (Motrin) 400 mg PO Q4H PRN PRN Reason: Pain Ibuprofen (Motrin) 800 mg PO Q6H PRN PRN Reason: Pain Last Admin: 01/17/20 15:03 Dose: 800 mg Lidocaine HCl (Xylocaine 1%) 50 ml INJECT ONETIME PRN PRN Reason: Laceration repair Methylergonovine Maleate (Methergine) 0.2 mg IM ASDIRECTED PRN PRN Reason: Post Hemorrhage Misoprostol (Cytotec) 200 mcg PO ONETIME PRN PRN Reason: Post Hemorrhage Misoprostol (Cytotec) 25 mcg VAG ONETIME PRN PRN Reason: Cervical Ripening Last Admin: 01/16/20 02:11 Dose: 25 mcg Misoprostol (Cytotec) 25 mcg VAG Q4H PRN PRN Reason: Cervical Ripening Last Admin: 01/16/20 13:13 Dose: 25 mcg Misoprostol (Cytotec) 25 mcg PO ONETIME PRN PRN Reason: Cervical Ripening Last Admin: 01/16/20 02:11 Dose: 25 mcg Misoprostol (Cytotec) 25 mcg PO Q4H PRN PRN Reason: Cervical Ripening Last Admin: 01/16/20 13:13 Dose: 25 mcg Nalbuphine HCl (Nubain) 10 mg IVPUSH Q1H PRN PRN Reason: Pain (severe 7-10) Ondansetron HCl (Zofran) 4 mg IVPUSH Q4H PRN PRN Reason: Nausea/Vomiting Oxycodone HCl (Oxycodone) 5 mg PO Q2H PRN PRN Reason: Pain Sodium Chloride (Saline Flush) 10 ml FLUSH ASDIRECTED PRN PRN Reason: Keep Vein Open Sodium Chloride (Saline Flush) 2.5 ml FLUSH ASDIRECTED PRN PRN Reason: Keep Vein Open Sodium Chloride (Normal Saline) 10 ml IV ASDIRECTED PRN PRN Reason: IV Use Sterile Water (Sterile Water For Irrigation) 1,000 ml IRR ASDIRECTED PRN PRN Reason: delivery Terbutaline Sulfate (Brethine) 0.25 mg SUBCUT ASDIRECTED PRN PRN Reason: Tacysystole Witch Fay (Tucks) 1 pad TOP ASDIRECTED PRN PRN Reason: comfort care Discontinued Medications Ephedrine Sulfate (Ephedrine Sulfate) Confirm Administered Dose 50 mg .ROUTE .STK-MED ONE Stop: 01/16/20 12:39 Fentanyl/Bupivacaine HCl (Fentanyl/Bupivacaine/Ns 2 Mcg-0.125% 250 Ml) Confirm Administered Dose 250 mls @ as directed .ROUTE .STK-MED ONE Stop: 01/16/20 11:47 - Exam General: Reports: Alert, Oriented HEENT: Reports: Pupils Equal, Pupils Reactive, Mucous Membr. Moist/[place] Neck: Reports: Supple Lungs: Reports: Clear to Auscultation, Normal Respiratory Effort Cardiovascular: Reports: Regular Rate, Regular Rhythm GI/Abdominal Exam: Normal Bowel Sounds, Soft, Non-Tender, No Organomegaly, No Distention, Other (Firm uterus @ U+1) (Female) Exam: Normal External Exam, Normal Speculum Exam, Normal Bimanual Exam Rectal (Female) Exam: Deferred Back Exam: Reports: Normal Inspection, Full Range of Motion Extremities: Normal Inspection, Normal Range of Motion, Non-Tender, No Pedal Edema, Normal Capillary Refill Skin: Reports: Warm, Dry, Intact Neurological: Reports: No New Focal Deficit Psy/Mental Status: Reports: Alert, Normal Affect, Normal Mood
== END 2020-01-17 23:55 | disposition home or self-care (01) | DRG 807 ==
LOC: MW.OBCHECK 00:13 → MW.OB 00:49 → OBSVTOIN 22:25 → MW.OB 22:25
PROVIDERS: ADMIT Obstetrics & Gynecology; ATTEND Obstetrics & Gynecology
PROC: 10E0XZZ Delivery of Products of Conception, External Approach (ICD-10-PCS; principal; 2020-01-16)
PROC: 3E0R3BZ Introduction of Anesthetic Agent into Spinal Canal, Percutaneous Approach (ICD-10-PCS; 2020-01-16)
DX: O24.429 Gestational diabetes mellitus in childbirth, unspecified control (principal); Z37.0 Single live birth; O73.0 Retained placenta without hemorrhage; O99.344 Other mental disorders complicating childbirth; F32.9 Major depressive disorder, single episode, unspecified; F41.9 Anxiety disorder, unspecified; O99.214 Obesity complicating childbirth; E66.9 Obesity, unspecified; O69.81X0 Labor and delivery complicated by cord around neck, without compression, not applicable or unspecified; Z3A.38 38 weeks gestation of pregnancy; Z79.84 Long term (current) use of oral hypoglycemic drugs
CPT/HCPCS: 36415; 51702; 59025; 59409; 82962; 85014; 85018; 85027; 86592; 86593; 86850; 86900; 86901; A9270-GY; J2590; J3010; J7120